=== PATIENT | female | born 1990 | race Caucasian/White ===

== ENCOUNTER 2020-05-09 09:48 | Outpatient (CLI) | payer MEDICAID, OTHER ==
[2020-05-09 20:14] LABS: SARS-CoV-2 MS2 Positive; SARS-CoV-2 N Gene Negative; SARS-CoV-2 S Gene Negative; SARS-CoV-2 by NAA Not Detected (NotDetected); SARS-CoV-2 orf1ab Negative
== END 2020-05-09 09:49 | disposition home or self-care (01) ==
LOC: LABSCS 09:48
PROVIDERS: ATTEND Obstetrics & Gynecology
DX: Z20.828 Contact with and (suspected) exposure to other viral communicable diseases (principal)
CPT/HCPCS: 87635; U0003

== ENCOUNTER 2020-05-12 05:45 | Inpatient (IN) | payer OTHER ==
[2020-05-12] MEDS ORDERED: CEFAZOLIN 2 GM in Premix Bag 1 BAG IVPB SCH (05:58)
[2020-05-12] MEDS ORDERED: hydrALAZINE 20 MG/ML VIAL SLOW IVP PRN (05:58)
[2020-05-12] MEDS ORDERED: Ondansetron PF 4 MG/2 ML Vial IVP PRN ×3 (05:58→08:56)
[2020-05-12] MEDS ORDERED: Bicitra 30 ML UDCUP PO SCH (05:58)
[2020-05-12] MEDS ORDERED: Promethazine HCl 25 MG/ML VIAL IM PRN ×5 (05:58→08:56)
[2020-05-12 06:36] VITALS: BMI 37.8
[2020-05-12 06:43] LABS: Hemoglobin 13.1 g/dL (12.0-16.0); Mean Corpuscular HGB CONC 33.1 g/dL (32.0-36.0); Mean Corpuscular Hemoglobin 30.6 pg (27.0-31.0); Mean Corpuscular Volume 92.3 fL (78.0-98.0); Mean Platelet Volume 8.2 fL (7.4-10.4); Platelet Count 264 thou/uL (130-400); Red Blood Cell (RBC) Count 4.27 mill/uL (4.20-5.40); White Blood Cell (WBC) Count 11.7 thou/uL (4.8-10.8)
[2020-05-12] MEDS ORDERED: EPHEDRINE 25 MG/5 ML SYRINGE ONE (06:51)
[2020-05-12] MEDS ORDERED: Ketorolac Tromethamine 30 MG/ML VIAL ONE (06:51)
[2020-05-12] MEDS ORDERED: PHENYLEPHRINE-NS 100 MCG/ML 10 ML SYRINGE ONE (06:51)
[2020-05-12] MEDS ORDERED: Oxytocin 10 UNITS/ML VIAL ONE ×2 (06:51→08:04)
[2020-05-12] MEDS ORDERED: Ondansetron PF 4 MG/2 ML Vial ONE (06:52)
[2020-05-12] MEDS ORDERED: MORPHINE 5 MG/10 ML PF VIAL ONE (06:55)
[2020-05-12] MEDS: Lactated Ringer's 1,000 ML IV SCH ×4 (06:59→20:44)
[2020-05-12 07:24] LABS: HBSAg Index 0.16 S/CO (0-0.99); Hep B Surf Ag Non-Reactive S/CO (NonReactive); Syphilis Antibody Nonreactive (Nonreactive); Syphilis Antibody Index 0.05 S/CO (<1.00 Non-Reactive)
[2020-05-12] MEDS ORDERED: Ketorolac Tromethamine 30 MG/ML VIAL IVP PRN (08:18)
[2020-05-12] MEDS ORDERED: Promethazine HCl 25 MG SUPP PR PRN ×2 (08:18→08:56)
[2020-05-12] MEDS ORDERED: HYDROmorphone 2 MG/ML VIAL SLOW IVP PRN (08:18)
[2020-05-12] MEDS ORDERED: diphenhydrAMINE 50 MG/ML VIAL IVP PRN ×2 (08:18→08:56)
[2020-05-12] MEDS ORDERED: Naloxone HCl 0.4 mg/ml Vial IV PRN ×2 (08:18→08:56)
[2020-05-12] MEDS ORDERED: L&D-Morphine 4 MG/ML VIAL SLOW IVP PRN (08:18)
[2020-05-12] MEDS ORDERED: Meperidine HCl/PF 25 MG/ML VIAL SLOW IVP PRN (08:18)
[2020-05-12] MEDS ORDERED: Ondansetron HCl/PF 4 MG/2 ML Vial IVP PRN (08:18)
[2020-05-12] MEDS ORDERED: Naloxone HCl 0.4 mg/ml Vial IVP PRN ×4 (08:18→08:56)
[2020-05-12] MEDS ORDERED: Communication Order-Pharmacy FS SCH ×2 (08:30→09:00)
[2020-05-12] MEDS ORDERED: Ketorolac Tromethamine 30 MG/ML VIAL IVP SCH (08:30)
--- NOTE | 2020-05-12 19:25 | OP ---
DATE OF PROCEDURE: 05/12/2020 RESIDENT SURGEON: Radha Mak MD TECHNICAL SERVICES CONSULTANT SURGEON: Ludy Tam, MS-4 PREOPERATIVE DIAGNOSES: 1. Term intrauterine at 39-4/7th weeks. 2. Prior . POSTOPERATIVE DIAGNOSES: 1. Term intrauterine at 39-4/7th weeks. 2. Prior . PROCEDURE PERFORMED: Repeat low transverse section. ANESTHESIA: Spinal catheterization. FINDINGS: 1. Omental adhesions to anterior abdominal wall. 2. Vigorous female infant, 7 pounds 3 ounces, Apgars 8 and 9. 3. Normal uterus, tubes, and ovaries. COMPLICATIONS: None. SPECIMENS REMOVED: Cord blood. BLOOD LOSS: Approximately 600 mL. HISTORY AND INDICATIONS: Mrs. Elida Mccartney is a pleasant 29-year-old white female, 2, para 1-0-0-1, followed my clinic for obstetric care. She previously had a delivery and declines trial of labor. She presents this morning for repeat low-transverse section. Surgical disclosures were signed and placed in the chart. Questions were answered to the patient's satisfaction. DESCRIPTION OF PROCEDURE: After consent and counseling, Mrs. Mccartney was taken to the operating room and an adequate level of anesthesia was obtained via spinal catheterization. The patient was prepped and draped in usual sterile fashion for abdominal surgery. A Sotelo was placed in the bladder, which was noted to be draining clear urine. Attention was then turned to performing the repeat low-transverse section. Team time-out was performed per protocol. A Pfannenstiel incision was made, carried sharply to the fascia, which was also sharply incised. The midline was identified. The rectus muscles were retracted laterally. The abdominal peritoneal cavity was entered with usual safeguards carried out. A retractor was placed, and a bladder flap was created on the vesicouterine peritoneum. A bladder blade was then placed. A low-transverse incision was made on the well-developed lower uterine segment. Upon entering the amniotic sac, copious amount of clear amniotic fluid was visualized. The was noted to be vertex presentation in the occiput anterior position, still high in the pelvis. With the assistance of a vacuum extractor, the head was delivered and baby was bulb suctioned on the abdomen. Shoulders and body were then delivered in an atraumatic fashion. The cord was doubly clamped and cut. The was handed to the pediatric team in attendance for the delivery. The was a vigorous viable female weighing 7 pounds 3 ounces with Apgars of 8 and 9 obtained at one and five minutes respectively. Cord blood was obtained. The placenta was manually removed from the uterus. The uterus was exteriorized and good tone was noted. The uterine cavity was then cleared of any remaining clot and fluid. The low-transverse incision was closed with a running locking ligature of #1 chromic. A second imbricating layer was placed to facilitate strength and hemostasis. Several [id number] ligatures of #1 chromic were also placed to facilitate strength and hemostasis. The vesicouterine peritoneum was reapproximated to the lower segment with a running ligature of 2-0 Monocryl suture. Good fascial integrity was noted. Good hemostasis was appreciated. The posterior cul-de-sac and gutters were cleared of clot and fluid. The uterus was returned to the abdomen. The incision was once again inspected and noted to be hemostatic. Lap, sponge, and needle counts were correct. The peritoneum was closed with a running ligature of 2-0 Vicryl. The rectus muscles were reapproximated in the midline with interrupted ligatures of 2-0 Vicryl and #1 chromic suture. The fascia was then closed with two ligatures of 0 Vicryl suture, which were tied in the midline. Good fascial integrity was appreciated. The incision was irrigated with copious amount of warm normal saline. Good hemostasis was appreciated. The subcutaneous tissue was closed with interrupted ligatures of 2-0 plain. The skin was closed with a subcuticular stitch of 4-0 Monocryl and dressed with Dermabond. A pressure dressing and ice packs were subsequently placed. Lap, sponge, and needle counts were correct x3. Estimated blood loss during the surgical procedure was approximately 600 mL and then (QBL 660 mL). The patient was taken to recovery room in good condition. Immediately following surgery, the patient and family were made aware of the surgical procedure and operative findings. Questions were answered to their satisfaction. Baby was returned to the mother in the recovery room for [id number] contact and . The patient and family were very appreciative of the care rendered here at [facility] this morning. Job ID: [id number]
[2020-05-12] MEDS: Ketorolac Tromethamine 30 MG/ML VIAL IVP PRN (20:45)
[2020-05-13] MEDS: Ketorolac Tromethamine 30 MG/ML VIAL IVP PRN (04:50)
[2020-05-13] MEDS ORDERED: HYDROcodone/Acetaminophen 5/325 mg Tablet PO PRN (10:19)
[2020-05-13] MEDS ORDERED: Docusate Calcium (SURFAK) 240 MG CAP PO SCH (10:30)
[2020-05-13] MEDS ORDERED: Prenatal Vitamin 1 TAB PO SCH (10:30)
[2020-05-13] MEDS: HYDROcodone/Acetaminophen 5/325 mg Tablet PO PRN ×3 (11:27→21:15)
[2020-05-13] MEDS: Ibuprofen 800 MG TAB PO SCH ×2 (14:11→21:16)
[2020-05-13] MEDS: Docusate Calcium (SURFAK) 240 MG CAP PO SCH (21:16)
[2020-05-14] MEDS ORDERED: Prenatal Vitamin 1 TAB PO SCH (09:00)
[2020-05-14] MEDS: Docusate Calcium (SURFAK) 240 MG CAP PO SCH (10:25)
[2020-05-14] MEDS: Ibuprofen 800 MG TAB PO SCH (10:25)
[2020-05-14 11:33] VITALS: BP 120/65; TEMP 98.6
[2020-05-14] MEDS ORDERED: Ondansetron ODT 4 MG TAB PO PRN (11:34)
== END 2020-05-14 13:15 | disposition home or self-care (01) | DRG 788 ==
LOC: L&D 05:45 → 3SW 11:11
PROVIDERS: ADMIT Obstetrics & Gynecology; ATTEND Obstetrics & Gynecology
PROC: 10D00Z1 Extraction of Products of Conception, Low, Open Approach (ICD-10-PCS; principal; 2020-05-12)
DX: O34.211 Maternal care for low transverse scar from previous cesarean delivery (principal); Z3A.39 39 weeks gestation of pregnancy; Z37.0 Single live birth; Z20.828 Contact with and (suspected) exposure to other viral communicable diseases
CPT/HCPCS: 36415; 51702; 85027; 86780; 86850; 86900; 86901; 87340; J0690; J1200; J1885; J2274; J2405; J2590; Q0162